=== PATIENT | female | born 2005 | race Hispanic/Latino ===

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

== ENCOUNTER 2024-05-17 11:08 | Outpatient (CLI) | payer OTHER, MEDICAID ==
[2024-05-17] MEDS ORDERED: Magnevist 469MG/ML 20 ML VIAL ONE (14:27)
== END 2024-05-17 11:09 | disposition home or self-care (01) ==
LOC: MRI 11:08
PROVIDERS: ATTEND Psychiatry & Neurology Neurology
DX: G40.909 Epilepsy, unspecified, not intractable, without status epilepticus (principal)
CPT/HCPCS: 70553; 76376; A9579

== ENCOUNTER 2025-04-03 13:47 | Outpatient (CLI) | payer OTHER | END 2025-04-03 13:48 | disposition home or self-care (01) | LOC: ULT 13:47 | PROVIDERS: ATTEND Family Medicine | DX: R10.2 Pelvic and perineal pain (principal); Z00.00 Encounter for general adult medical examination without abnormal findings; R63.8 Other symptoms and signs concerning food and fluid intake | CPT/HCPCS: 36415; 76856; 80053; 80061; 81001; 83036; 84439; 84443; 85025 ==